=== PATIENT | female | born 1950 | race Two or more races ===

== ENCOUNTER 2024-07-11 15:46 | Emergency (ER) | payer OTHER ==
[~2024-07-11] VITALS: Ht 167.6 cm; Wt 79.8 kg
[2024-07-11] MEDS ORDERED: PROZAC20 MG PO (16:23)
[2024-07-11] MEDS ORDERED: VERELAN PM100 MG (16:23)
[2024-07-11] MEDS ORDERED: FOSAMAX70 MG PO (16:23)
[2024-07-11] MEDS ORDERED: PRADAXA110 MG PO (16:23)
[2024-07-11] MEDS ORDERED: CHILDREN'S ASPI81 MG PO (16:24)
[2024-07-11] MEDS ORDERED: SIMVASTATIN5 MG (16:24)
== END 2024-07-11 17:11 | disposition home or self-care (01) ==
LOC: ER 15:49
DX: R53.81 Other malaise (principal); Z76.0 Encounter for issue of repeat prescription